=== PATIENT | male | born 1950 | race Caucasian/White ===

== ENCOUNTER → 2017-05-21 | Outpatient (CLI) | payer OTHER ==
[~2017-05-21] MED LIST: ALBU17IN2 INH; ALLO100T PO; CIAL5TAB PO; CIPR-249 PO; CYCL10TA PO; FLOM5CAP PO; LEVO25TA5 PO; MOBI4TAB PO; OXYC-517 PO; PROS5TAB PO; [UNRECOGNIZED DRUG - OTHER]
== END ==
LOC: M SMT 08:57
PROVIDERS: ATTEND Urology
DX: N40.1 Benign prostatic hyperplasia with lower urinary tract symptoms (principal)

== ENCOUNTER 2017-09-03 11:14 | Emergency (ER) | payer OTHER ==
[~2017-09-03] VITALS: Ht 157.5 cm; Wt 77.3 kg
[~2017-09-03 11:14] MED LIST changes: -ALBU17IN2 INH; -CYCL10TA PO; -MOBI4TAB PO
--- NOTE | 2017-09-03 12:18 | REP ---
Left shoulder series: Three views. History: Pain. Findings: The left glenohumeral and acromioclavicular joints are normally aligned. There is osteoarthritic hypertrophy at the AC joint along with some narrowing. There is a small dystrophic calcification in the periarticular soft tissues superolateral to the humeral head consistent with calcific tendonitis or bursitis. No bony erosive or destructive lesion is seen. 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 Periarticular calcification adjacent to the humeral head may reflect tendonitis or bursitis. No acute bony abnormality. Signed by Jaleel Leija MD 09/03/2017 01:26 P
[2017-09-03] MEDS ORDERED: MOBI4TAB PO (14:23)
[2017-09-03] MEDS ORDERED: CYCL10TA PO (14:23)
[2017-09-03 14:44] VITALS: BP 166/94
[2017-10-06] MEDS ORDERED: ALBU17IN2 INH (08:12)
== END 2017-09-03 14:45 | disposition home or self-care (01) ==
LOC: M ED 11:14
DX: M75.82 Other shoulder lesions, left shoulder (principal); W22.8XXA Striking against or struck by other objects, initial encounter; Y92.89 Other specified places as the place of occurrence of the external cause; Y93.89 Activity, other specified; Y99.8 Other external cause status; M10.9 Gout, unspecified; E03.9 Hypothyroidism, unspecified; Z90.79 Acquired absence of other genital organ(s); Z79.899 Other long term (current) drug therapy; Z88.8 Allergy status to other drugs, medicaments and biological substances

== ENCOUNTER 2017-10-15 06:04 | Day surgery (SDC) | payer OTHER ==
[~2017-10-15] VITALS: Ht 157.5 cm; Wt 74.8 kg
[~2017-10-15 06:04] MED LIST changes: +ALBU17IN2 INH; +CYCL10TA PO; +MOBI4TAB PO
[2017-10-15] MEDS ORDERED: ROPIvacaine 0.5% 30 ML INJECTION (J2795) ONE (06:05)
[2017-10-15] MEDS ORDERED: fentaNYL 100 MCG/2 ML INJECTION (J3010) As Ordered ONE ×2 (06:41→07:18)
[2017-10-15] MEDS ORDERED: MIDAZOLAM INJ 2 MG/2 ML VIAL (J2250) As Ordered ONE (06:41)
[2017-10-15] MEDS ORDERED: LR 1,000 ML IV ONE (07:00)
[2017-10-15] MEDS ORDERED: ROCURONIUM BROMIDE 50 MG/5 ML VIAL As Ordered ONE (07:17)
[2017-10-15] MEDS ORDERED: LIDOCAINE PRES-FREE 2% 10ML AMP As Ordered ONE (07:17)
[2017-10-15] MEDS ORDERED: PROPOFOL 200 MG/20 ML VIAL As Ordered ONE (07:17)
[2017-10-15] MEDS ORDERED: EPINEPHrine 1MG/ML INJ 30ML MD-VIAL As Ordered ONE (07:19)
[2017-10-15] MEDS: MIDAZOLAM INJ 2 MG/2 ML VIAL (J2250) IV PRN ×2 (07:21→07:22)
[2017-10-15] MEDS: fentaNYL 100 MCG/2 ML INJECTION (J3010) IV PRN ×2 (07:21→07:26)
[2017-10-15] MEDS ORDERED: dexameTHASONE 4 MG/ML 1ML VIAL (J1100) As Ordered ONE (07:54)
[2017-10-15] MEDS ORDERED: PHENYLEPHRINE INJ 10MG/ML VIAL (J2370) As Ordered ONE (07:59)
[2017-10-15] MEDS ORDERED: ceFAZolin 2 GM/D5W 50 ML IV BAG (J0690) As Ordered ONE (11:41)
[2017-10-15] MEDS ORDERED: ONDANSETRON 4MG/2ML VIAL (J2405) As Ordered ONE (11:46)
[2017-10-15] MEDS ORDERED: GLYCOPYRROLATE INJ 0.2 MG/ML 2 ML VIAL As Ordered ONE (11:47)
[2017-10-15] MEDS ORDERED: NEOSTIGMINE 10 MG/10 ML VIAL (J2710) As Ordered ONE (11:47)
[2017-10-15] MEDS ORDERED: MORPHINE 2 MG/ML 1ML SYRINGE IV PRN (13:00)
[2017-10-15] MEDS ORDERED: ONDANSETRON 4MG/2ML VIAL (J2405) IV PRN (13:00)
[2017-10-15] MEDS ORDERED: PERCOCET 5MG/325MG TAB PO PRN (13:00)
[2017-10-15] MEDS ORDERED: fentaNYL 100 MCG/2 ML INJECTION (J3010) IV PRN (13:00)
[2017-10-15] MEDS ORDERED: LR 1,000 ML IV SCH ×2 (13:00)
[2017-10-15 14:30] VITALS: BP 147/77
--- NOTE | 2017-10-16 12:55 | RO ---
DATE OF PROCEDURE: 10/15/2017 PREPROCEDURE DIAGNOSES: 1. Left shoulder massive rotator cuff tear. 2. Left shoulder impingement. POSTPROCEDURE DIAGNOSES: 1. Left shoulder massive rotator cuff tear. 2. Left shoulder impingement. 3. Left shoulder labral tear. 4. Left shoulder chondromalacia. PROCEDURE: 1. Left shoulder arthroscopy with arthroscopic rotator cuff repair. 2. Left shoulder arthroscopic subacromial decompression. 3. Left shoulder arthroscopic labral debridement and chondroplasty. SURGEON: Dr. Gamaliel Gao. LOG CLERK: ARMANI Woodard ANESTHESIA: General with preoperative nerve block. ESTIMATED BLOOD LOSS: IMPLANTS: Arthrex 4.75 mm SwiveLock anchors times five, Arthrex 5.5 mm Corkscrew anchor times two. CLOSURE: Nylon. INDICATION: Jey is a 66-year-old gentleman that suffered a traumatic injury to his left shoulder. He had severely diminished active forward flexion and severe weakness on exam concerning for a massive rotator cuff tear. Preoperative MRI confirmed tear of the supraspinatus, infraspinatus and upper subscapularis. Given his poor function yet good passive range of motion, I did recommend surgical management. We discussed the increased risk of retear for massive tears which includes tearing of three of three of the four rotator cuff tendons as well as muscle atrophy which he has mild atrophy. He also had some mild arthritic changes on x-ray. After a full discussion of the risks and benefits, written and informed consent was obtained. PROCEDURE: The patient was identified in the preoperative holding area and the left arm signed by myself. He had a preoperative nerve block performed by anesthesia. He was brought to the operating room and placed supine on a well padded OR table with a beanbag. Venodyne boots bilateral lower extremities for deep venous thrombosis (DVT) prophylaxis. General anesthesia then induced without complication. Preliminary time out performed. Examination under anesthesia revealed 150 degrees of passive forward flexion, 70 degrees of external rotation with his arm at his side and 90 degrees of external rotation with his arm at 90. No increased anterior or posterior translation. The patient was then placed into the right side down lateral decubitus position with an axillary roll. The beanbag was deflated and he was secured with multiple straps to the operating room (OR) table. The down leg and all bony prominences well padded. The right arm was then prepped and draped in the normal sterile fashion with ChloraPrep. He received appropriate IV antibiotics within one hour of incision. A time out performed which myself and all OR staff confirmed the patient's name, medical record number, date of and the correct side, site and procedure. The right shoulder was insufflated with 30 mL of lactated ringers with a spinal needle. Standard posterior viewing portal made with an 11 blade. 30 degree arthroscope introduced into the joint atraumatically. Patient had formed quite a bit of scar tissue. It was difficult to visualize the anterior aspect of the joint. There was extensive synovitis. There was diffuse tearing of the anterior and superior labrum more degenerative in nature. There was a massive full thickness rotator cuff tear involving the entire infraspinatus, supraspinatus and I was unable to visualize the subscapularis. The only remaining rotator cuff tissue was the teres minor. There was grade 2 chondromalacia of both the humeral head and glenoid with small osteophyte formation on the humeral head. I then established a working portal through the rotator interval and brought in a purple Arthrex cannula. The shaver was used to perform a debridement of the labrum and chondroplasty of both the humeral head and glenoid. I also used the shaver to clear off some scar tissue on the greater tuberosity and used the shaver on ariana setting to remove a small osteophyte. The cautery device was then used to clear out some of the synovitis and scar tissue in the rotator interval. Still had difficulty visualizing the subscapularis. The scope was then placed into the subacromial space to come up with a plan for rotator cuff repair. A lateral working portal was localized with a spinal needle and then I used the radiofrequency cautery to perform a bursectomy and remove scar tissue off the undersurface of the acromion. The rotator cuff had retracted to the level of the glenoid. A traction stitch was placed into the tendon using a Scorpion FastPass and I then used the cautery to carefully remove bursa and scar tissue from both the superior and inferior aspects of the rotator cuff. The tissue grasper was used to manipulate the tendon to determine the appropriate position for rotator cuff repair. Basically this was a massive crescent tear which had retracted posteriorly with a delaminated component far posterior. Plan was to repair the far posterior rotator cuff then repair the subscapularis and the perform a SpeedBridge. I percutaneously placed a 5.5 mm Corkscrew anchor into the posterior greater tuberosity to repair the infraspinatus. The Scorpion was used to pass two limbs of the FiberWire in a horizontal mattress fashion through the far posterior and deep infraspinatus tissue. Arthroscopic knots were then tied by hand and cut. The remaining suture was unloaded from the anchor. This help set the posterior aspect of the tear. The scope was placed into the lateral portal to again have a full understanding of the shape of this tear. Additional releases were performed with cautery and bluntly with a switching stick to increase mobilization of the rotator cuff. The scope was placed back into the joint and with the posterior Lever maneuver, I was able to visualize the subscapularis which appeared torn and retracted inferiorly. The cautery was used to clear out more soft tissue and then to place traction on the comma tissue. I would estimate that the entire upper half of the subscapularis had torn and had more retracted inferiorly than medially. With the grasper I was able to reduce the tendon to the lesser tuberosity with only mild tension. I then used the shaver on the ariana setting to remove a small area of articular cartilage on the lesser tuberosity and basically medialize the subscapularis insertion by 5 mm. The Scorpion was used to pass a FiberTape through the upper third of the subscapularis through healthier tissue. Sutures were loaded through a SwiveLock anchor. The appropriate punch was used to create a socket in the lesser tuberosity at that slightly medialized position and then the punch used to create that socket. The anchor was then docked and sutures tensioned which nicely reduced the subscapularis tendon to the bone but not under excessive tension. The anchor was advanced by hand with excellent fixation. The sutures were trimmed and discarded. Subscapularis was now nicely repaired. The scope was placed back in the subacromial space and I placed percutaneously a 5.5 mm Corkscrew anchor in the far anterior greater tuberosity to help set the leading edge of the supraspinatus to avoid now reducing the tendon. All four limbs of suture were passed in a horizontal mattress fashion using the FastPass. The most anterior sutures were tied by hand and then trimmed and discarded. The more posterior sutures yet still in the anterior supraspinatus were tied by hand but not cut. I then opened the Arthrex SpeedBridge kit which were 4.75 PEEK anchors. I percutaneously placed two of the preloaded anchors close to the articular surface in the greater tuberosity. The sutures were cut to that I could pass the Fiber and [place] tapes individually so there were four individual passes. This was done in an anterior to posterior fashion. One limb of Fiber and [place] tape posteriorly were withdrawn from the posterior lateral cannula which was used to reduce the tendon to the greater tuberosity to determine the appropriate position for lateral anchor. Those sutures were loaded through a SwiveLock anchor and the appropriate punch used to create a socket and then the anchor seated, sutures tension and the screw advanced by hand with excellent fixation. There was now though a dog ear at the junction of the supra- and infraspinatus. I passed a FiberLink suture through that bunched up tissue to remove the dog ear. I then retrieved that FiberLink and the more anterior sutures out in the anterior lateral cannula and then used the cannula to reduce those sutures to determine the most appropriate position for lateral row. The dog ear was now completely eliminated by that FiberLink suture. Again lateral anchor placed by hand per SpeedBridge routine and that anchor had good but not great fixation. I did tug on the eyelet sutures and there was no motion of the anchor. Sutures were then trimmed and discarded. The arm was gently rotated and the rotator cuff moved nicely as a unit with no lift off. The shoulder was irrigated and drained. Portals closed with #3-0 Nylon suture. Bulky sterile bandage applied. Patient was very carefully positioned into an ARC 2 shoulder brace. He was awoken from general anesthesia, carefully transferred to his stretcher and back to the postanesthesia care unit. All counts correct times two. COMPLICATIONS: None. DISPOSITION: Patient is strictly non-weight bearing and no use of the left arm. This was relayed to his significant other. We will not start physical therapy for 6 weeks. I should mention that his antibiotics were redosed at the 4 hour tomeka.
== END 2017-10-15 15:00 | disposition home or self-care (01) ==
LOC: M SDC 06:04
PROVIDERS: ATTEND Orthopaedic Surgery
DX: S46.012A Strain of muscle(s) and tendon(s) of the rotator cuff of left shoulder, initial encounter (principal); S43.492A Other sprain of left shoulder joint, initial encounter; M94.212 Chondromalacia, left shoulder; M75.42 Impingement syndrome of left shoulder; E03.9 Hypothyroidism, unspecified; M54.9 Dorsalgia, unspecified; M10.9 Gout, unspecified; K21.9 Gastro-esophageal reflux disease without esophagitis; J44.9 Chronic obstructive pulmonary disease, unspecified; N40.0 Benign prostatic hyperplasia without lower urinary tract symptoms; W20.8XXA Other cause of strike by thrown, projected or falling object, initial encounter; Y92.89 Other specified places as the place of occurrence of the external cause; Y93.89 Activity, other specified; Y99.0 Civilian activity done for income or pay; Z79.899 Other long term (current) drug therapy; Z87.891 Personal history of nicotine dependence
CPT/HCPCS: 29822; 29826; 29827; C1713; J0690; J1100; J2250; J2370; J2405; J2710; J2795; J3010

== ENCOUNTER → 2018-01-20 | Outpatient (REF) | payer MEDICARE ==
[2018-01-20 12:11] LABS: HEMATOCRIT 44.5 % (42.0-52.0); HEMOGLOBIN 14.8 g/dl (14.0-18.0); MEAN CORPUSCULAR HGB CONC 33.3 g/dl (32.0-36.5); MEAN CORPUSCULAR VOLUME 90.3 fl (80.0-96.0); PLATELET COUNT, AUTOMATED 267 10^3/uL (150-450); RED BLOOD COUNT 4.93 10^6/uL (4.30-6.10); RED CELL DISTRIBUTION WIDTH 13.5 % (11.5-14.5); WHITE BLOOD COUNT 6.4 10^3/uL (4.0-10.0)
[2018-01-20 12:12] LABS: PTH INTACT 87.3 PG/ML (18.5-88.0); TOTAL 25(OH) VITAMIN D 21.7 NG/ML (30.0-100.0)
[2018-01-20 12:20] LABS: ANION GAP 9 MEQ/L (8-16); BLOOD UREA NITROGEN 28 MG/DL (7-18); CALCIUM LEVEL 8.8 MG/DL (8.8-10.2); CARBON DIOXIDE LEVEL 27 MEQ/L (21-32); CHLORIDE LEVEL 105 MEQ/L (98-107); CREATININE FOR GFR 1.63 MG/DL (0.70-1.30); FREE T4 0.79 NG/DL (0.76-1.46); GLOMERULAR FILTRATION RATE 45.4 (>49); GLUCOSE, FASTING 108 MG/DL (70-100); POTASSIUM SERUM 4.7 MEQ/L (3.5-5.1); SODIUM LEVEL 141 MEQ/L (136-145)
[2018-01-20 12:39] LABS: CREATININE, URINE 35.7 MG/DL; MALB URINE SIEMENS 68.2 MG/L
== END ==
LOC: M SFHCLERA 08:46
DX: N18.3 Chronic kidney disease, stage 3 (moderate) (principal); E03.9 Hypothyroidism, unspecified
CPT/HCPCS: 84443

== ENCOUNTER → 2018-03-31 | Outpatient (REF) | payer MEDICARE ==
[2018-03-31 18:17] LABS: ESTIMATED AVERAGE GLUCOSE 126 MG/DL (60-110)
[2018-03-31 18:28] LABS: CHOLESTEROL LEVEL 331 MG/DL (<200); CHOLESTEROL RISK RATIO 7.355 (<5); FREE T4 0.85 NG/DL (0.76-1.46); HDL CHOLESTEROL 45 MG/DL (>40); NON-HDL-C 286 MG/DL; TRIGLYCERIDES LEVEL 444 MG/DL (<150)
== END ==
LOC: M SFHCLERA 13:50
DX: E03.9 Hypothyroidism, unspecified (principal)
CPT/HCPCS: 84443

== ENCOUNTER → 2018-11-12 | Outpatient (REF) | payer MEDICARE ==
[2018-11-12 20:43] LABS: BASO % 0.2 % (0.0-1.0); EOS # 0.4 10^3/uL (0.0-0.50); EOS % 4.5 % (0.0-3.0); HEMATOCRIT 42.8 % (42.0-52.0); HEMOGLOBIN 13.9 g/dl (13.5-17.5); IMMATURE GRANULOCYTE % 0.7 % (0-3.0); LYMPH # 2.1 10^3/uL (1.5-4.5); LYMPH % 25.8 % (24.0-44.0); MEAN CORPUSCULAR HEMOGLOBIN 29.6 pg (27.0-33.0); MEAN CORPUSCULAR HGB CONC 32.5 g/dl (32.0-36.5); MEAN CORPUSCULAR VOLUME 91.3 fl (80.0-96.0); MONO % 11.7 % (0.0-5.0); NEUTROPHILS # 4.7 10^3/uL (1.8-7.7); NEUTROPHILS % 57.1 % (36.0-66.0); PLATELET COUNT, AUTOMATED 339 10^3/uL (150-450); RED BLOOD COUNT 4.69 10^6/uL (4.30-6.10); RED CELL DISTRIBUTION WIDTH 13.3 % (11.5-14.5); WHITE BLOOD COUNT 8.2 10^3/uL (4.0-10.0)
[2018-11-12 20:44] LABS: URIC ACID 7.8 MG/DL (3.5-7.2)
[2018-11-12 20:44] LABS: C REACTIVE PROTEIN QUANTITATIV 5.32 MG/DL (0.00-0.30)
[2018-11-12 20:46] LABS: ALBUMIN 3.9 GM/DL (3.2-5.2); ALBUMIN/GLOBULIN RATIO 1.15 (1.00-1.93); ALKALINE PHOSPHATASE 73 U/L (45-117); ALT/SGPT 31 U/L (12-78); ANION GAP 7 MEQ/L (8-16); AST/SGOT 20 U/L (7-37); BILIRUBIN,TOTAL 0.5 MG/DL (0.2-1.0); BLOOD UREA NITROGEN 24 MG/DL (7-18); CALCIUM LEVEL 8.6 MG/DL (8.8-10.2); CARBON DIOXIDE LEVEL 24 MEQ/L (21-32); CHLORIDE LEVEL 108 MEQ/L (98-107); CREATININE FOR GFR 1.53 MG/DL (0.70-1.30); GLOMERULAR FILTRATION RATE 48.9 (>49); GLUCOSE, FASTING 80 MG/DL (70-100); POTASSIUM SERUM 4.6 MEQ/L (3.5-5.1); SODIUM LEVEL 139 MEQ/L (136-145); TOTAL PROTEIN 7.3 GM/DL (6.4-8.2)
[2018-11-12 20:58] LABS: ESTIMATED AVERAGE GLUCOSE 140 MG/DL (60-110); HEMOGLOBIN A1c 6.5 %
[2018-11-12 21:04] LABS: ERYTHROCYTE SEDIMENTATION RATE 24 mm/hr (0-20)
== END ==
LOC: M SFHCLERA 15:46
DX: M25.461 Effusion, right knee (principal); N18.3 Chronic kidney disease, stage 3 (moderate); R73.02 Impaired glucose tolerance (oral)
CPT/HCPCS: 84550

== ENCOUNTER → 2018-11-12 | Outpatient (CLI) | payer MEDICARE | LOC: M LRY 15:59 | DX: M17.11 Unilateral primary osteoarthritis, right knee (principal); M25.761 Osteophyte, right knee; M25.461 Effusion, right knee | CPT/HCPCS: 73564 ==

== ENCOUNTER → 2018-11-18 | Outpatient (REF) | payer MEDICARE ==
[2018-11-18 11:39] LABS: BASO % 0.4 % (0.0-1.0); EOS # 0.4 10^3/uL (0.0-0.50); EOS % 4.3 % (0.0-3.0); HEMATOCRIT 45.2 % (42.0-52.0); HEMOGLOBIN 14.5 g/dl (13.5-17.5); IMMATURE GRANULOCYTE % 1.1 % (0-3.0); LYMPH # 1.8 10^3/uL (1.5-4.5); LYMPH % 17.6 % (24.0-44.0); MEAN CORPUSCULAR HGB CONC 32.1 g/dl (32.0-36.5); MEAN CORPUSCULAR VOLUME 93.4 fl (80.0-96.0); MONO # 1.2 10^3/uL (0.0-0.8); MONO % 11.9 % (0.0-5.0); NEUTROPHILS # 6.5 10^3/uL (1.8-7.7); NEUTROPHILS % 64.7 % (36.0-66.0); PLATELET COUNT, AUTOMATED 351 10^3/uL (150-450); RED BLOOD COUNT 4.84 10^6/uL (4.30-6.10); RED CELL DISTRIBUTION WIDTH 13.2 % (11.5-14.5); WHITE BLOOD COUNT 10.1 10^3/uL (4.0-10.0)
[2018-11-18 11:43] LABS: C REACTIVE PROTEIN QUANTITATIV 4.17 MG/DL (0.00-0.30)
== END ==
LOC: M SFHCLERA 07:54
DX: M25.461 Effusion, right knee (principal)
CPT/HCPCS: 86140

== ENCOUNTER 2019-08-23 09:49 | Day surgery (SDC) | payer MEDICARE ==
[~2019-08-23] VITALS: Ht 157.5 cm; Wt 76.2 kg
[~2019-08-23 09:49] MED LIST changes: -ALBU17IN2 INH; +AMLO5TAB6 PO; +ATOR1TAB19 PO; +FLOM0.4C39 PO; -FLOM5CAP PO; +LIDOCAINE 1% MDV 20ML VIAL SQ PRN; +LR 1,000 ML IV ONE; +PROV108A INH; +b/p med; +ceFAZolin SOD 2 GM in IV 1 EA IV ONE
[2019-08-23] MEDS ORDERED: ROPIvacaine 0.5% 30 ML INJECTION (J2795 PER 1MG) ONE (09:50)
[2019-08-23] MEDS ORDERED: dexameTHASONE 10 MG/1 ML VIAL PRES.FREE (J1100) ONE (09:50)
[2019-08-23] MEDS ORDERED: ALEV220T22 PO (10:36)
[2019-08-23] MEDS ORDERED: SCOPOLAMINE 1MG TRANSDERMAL PATCH TOP ONE (10:45)
[2019-08-23] MEDS ORDERED: LIDOCAINE 1% SDV INJ 30 ML VIAL As Ordered ONE (11:12)
[2019-08-23] MEDS ORDERED: EPINEPHrine 1MG/ML INJ 30ML MD-VIAL As Ordered ONE (11:13)
[2019-08-23] MEDS ORDERED: MIDAZOLAM INJ 2 MG/2 ML VIAL (J2250) As Ordered ONE ×2 (11:44→12:40)
[2019-08-23] MEDS ORDERED: fentaNYL 100 MCG/2 ML INJECTION (J3010) As Ordered ONE ×2 (11:44→12:40)
[2019-08-23] MEDS ORDERED: MIDAZOLAM INJ 2 MG/2 ML VIAL (J2250) IV ONE (12:30)
[2019-08-23] MEDS ORDERED: fentaNYL 100 MCG/2 ML INJECTION (J3010) IV ONE (12:30)
[2019-08-23] MEDS ORDERED: LIDOCAINE 2% INJ 100 MG/5 ML SDV (FOR ANES.) As Ordered ONE (12:40)
[2019-08-23] MEDS ORDERED: dexameTHASONE 4 MG/ML 1ML VIAL (J1100) As Ordered ONE (12:40)
[2019-08-23] MEDS ORDERED: ROCURONIUM BROMIDE 50 MG/5 ML VIAL As Ordered ONE (12:40)
[2019-08-23] MEDS ORDERED: PROPOFOL 200 MG/20 ML VIAL As Ordered ONE (12:40)
[2019-08-23] MEDS ORDERED: ePHEDrine SULFATE 25 MG/5 ML(5MG/ML) SYRINGE As Ordered ONE (13:04)
[2019-08-23] MEDS ORDERED: ONDANSETRON 4MG/2ML VIAL (J2405) As Ordered ONE (13:36)
[2019-08-23] MEDS ORDERED: SUGAMMADEX SODIUM 500 MG/5 ML VIAL (BRIDION) As Ordered ONE (14:00)
[2019-08-23] MEDS ORDERED: LR 1,000 ML IV SCH ×3 (16:45→17:30)
[2019-08-23] MEDS ORDERED: fentaNYL 100 MCG/2 ML INJECTION (J3010) IV PRN (16:45)
[2019-08-23] MEDS ORDERED: ONDANSETRON 4MG/2ML VIAL (J2405) IV PRN (16:45)
[2019-08-23] MEDS ORDERED: oxyCODONE 5MG TAB As Ordered ONE (16:57)
[2019-08-23] MEDS ORDERED: oxyCODONE 5MG TAB PO PRN ×2 (17:15→17:30)
[2019-08-23 18:30] VITALS: BP 125/83
--- NOTE | 2019-09-06 10:35 | RO ---
DATE OF PROCEDURE: 08/23/2019 PREOPERATIVE DIAGNOSIS: 1. Right shoulder massive rotator cuff tear. 2. Right shoulder long head biceps subluxation with tearing. 3. Left shoulder impingement. 4. Left shoulder AC joint arthritis. POSTOPERATIVE DIAGNOSIS: 1. Right shoulder massive rotator cuff tear. 2. Right shoulder long head biceps subluxation with tearing. 3. Left shoulder impingement. 4. Left shoulder AC joint arthritis. PROCEDURE: 1. Right shoulder arthroscopic rotator cuff repair. 2. Right shoulder arthroscopic subacromial decompression with acromioplasty. 3. Right shoulder arthroscopic distal clavicle excision. 4. Right shoulder extensive debridement including a tenotomy of the long head of biceps, labral debridement chondroplasty. SURGEON: Dr. Gamaliel Gao. BUS ANALYST: ARMANI Hensley ANESTHESIA:General plus preoperative nerve block. IV FLUIDS: Lactated Ringer's. IMPLANTS: Arthrex Peak SwiveLock anchors. CLOSURE: Nylon. PROCEDURE: The patient was identified in preoperative holding area. The right shoulder marked by myself. Interscalene nerve block performed. Brought the operating room, placed supine on a well-padded OR table on the beanbag. General anesthesia induced. Exam under anesthesia revealed 170 degrees forward flexion 80 of external rotation with arm at his side. No increased anterior-posterior translation. He was placed to the left side down lateral decubitus position with an axillary roll and all bony prominences well padded. He had bilateral Venodyne boots for DVT prophylaxis. The right arm was placed into the Arthrex star sleeve lateral decubitus traction davis with 10 pounds of traction. He received appropriate IV antibiotics within 1 hour of incision. The right shoulder was then prepped and draped in normal sterile fashion with Chloraprep. Prior to incision time-out performed per hospital protocol. Anastacio Serrano was present the entire procedure and participated all essential portions procedure. This included patient positioning, draping, holding arthroscope, using the mallet and awl to help place anchors, retrieving sutures, a cutting sutures arthroscopically, wound closure applying the sling. The right shoulder was insufflated lactated Ringer's. A standard posterior viewing portal made 11-blade. 30 degree arthroscope introduced into the joint and diagnostic arthroscopy was carried out. This revealed grade 1 to 2 chondromalacia of the glenoid. Grade 1 in the humeral head. There was a degenerative tearing of the anterior superior labrum. There was a massive tear of the entire supraspinatus which was significantly retracted and the infraspinatus was also torn. The upper subscapularis was torn as well. The long head of the biceps was still attached to the long head biceps was still attached but was subluxated. This was released with a up biter. I did establish an anterior working portal through the rotator interval. I then released the long head of biceps which was subluxated with the meniscal punch. Next the cautery shaver used to clear out the rotator interval. An accessory superolateral portal was used to place a fiber tape suture through the upper one third of the subscapularis. There was split tearing of retraction of the subscapularis a suture lasso was used to shuttle fiber tape through the lower subscapularis. That was loaded through 4.75 mm Peak SwiveLock anchor. Shaver cautery used to clear soft tissue off the lesser tuberosity. The appropriate awl was used to create a socket lesser tuberosity. The anchor was docked, sutures tensioned anchor inserted with excellent fixation. Excess suture cut the eyelet cutter. The subscapularis was now under much better tension. Scorpion used to pass a separate fiber tape through the upper one third of healthy tendon and that was also loaded through 4.75 mm Peak SwiveLock anchor same steps repeated with the awl and mallet. The anchor was docked higher up on the lesser tuberosity and that had excellent fixation. This was a two anchor subscapularis repair and this was nicely secured to the lesser tuberosity without any significant tension. I performed a chondroplasty and labral debridement with the shaver. Next the arthroscope was placed in the subacromial space and I proceeded with a distal clavicle excision using a bur. I removed approximately 6 mm of the distal clavicle. The scope was placed through the anterior portal to ensure no posterior-superior bone was remaining. Arthroscope placed back through the posterior portal and through a lateral portal I performed a bursectomy and acromioplasty. The bur was used to remove a moderate size subacromial spur. Shaver and cautery used to clear out bursal tissue. A traction stitch was placed in the supraspinatus which was massively retracted. I should mention almost entire infraspinatus had torn and retracted as well. Once additional releases were performed the cuff grasper was used to reduce the tendon to the greater tuberosity and this was deemed repairable. I percutaneously placed a 4.75 mm Peak SwiveLock anchor through the far posterior portion of greater tuberosity just off the articular surface. Eyelet sutures were passed and as were the tape sutures. Eyelet sutures were then tied down using arthroscopic knot tying techniques which brought the tendon further anterior and lateral. I then placed two additional medial row anchors and passed the tapes to the supraspinatus. The medial sutures then brought out to lateral row were cannula where a separate portal was made to give a better angle. I used the ring curette to clear soft tissue off the greater tuberosity. Two anchors were used laterally three medial. When the lateral rows were seated there was excellent compression of the infra and supraspinatus to the greater tuberosity. The entire humeral head was covered with tendon so was able to get a complete repair. The shoulder was then gently internally and externally rotated and there is no lift off or buckling. Shoulder was irrigated and drained. Portals closed with nylon suture. Bulky sterile dressing applied. He was carefully placed into a sling, extubated, transferred to PACU in stable condition. All counts correct times. DISPOSITION: The patient's family was warned out postoperatively that this was a massive tear. He has to be very diligent following postop restrictions avoid re-tear.
== END 2019-08-23 18:35 | disposition home or self-care (01) ==
LOC: M SDC 09:49 → EDSTATUS 11:45 → M SDC 18:35
PROVIDERS: ATTEND Orthopaedic Surgery
DX: M75.121 Complete rotator cuff tear or rupture of right shoulder, not specified as traumatic (principal); M94.211 Chondromalacia, right shoulder; M19.011 Primary osteoarthritis, right shoulder; M75.41 Impingement syndrome of right shoulder; S46.111A Strain of muscle, fascia and tendon of long head of biceps, right arm, initial encounter; I10 Essential (primary) hypertension; E78.00 Pure hypercholesterolemia, unspecified; N40.0 Benign prostatic hyperplasia without lower urinary tract symptoms; Z79.899 Other long term (current) drug therapy
CPT/HCPCS: 29824; 29826; 29827; 29828; C1713; J0690; J1100; J2250; J2405; J2795; J3010

== ENCOUNTER → 2020-07-25 | Outpatient (REF) | payer MEDICARE ==
[~2020-07-25] MED LIST changes: +ALEV220T22 PO; +AMLO1TAB24 PO; -AMLO5TAB6 PO; +CYCL-707 PO; -CYCL10TA PO; -LIDOCAINE 1% MDV 20ML VIAL SQ PRN; -LR 1,000 ML IV ONE; -ceFAZolin SOD 2 GM in IV 1 EA IV ONE
[2020-07-25 15:38] LABS: BASO % 0.6 % (0.0-1.0); EOS # 0.4 10^3/uL (0.0-0.5); EOS % 6.3 % (0.0-3.0); HEMATOCRIT 45.6 % (42.0-52.0); HEMOGLOBIN 15.1 g/dl (13.5-17.5); LYMPH # 2.1 10^3/uL (1.5-5.0); LYMPH % 30.7 % (24.0-44.0); MEAN CORPUSCULAR HEMOGLOBIN 30.8 pg (27.0-33.0); MEAN CORPUSCULAR HGB CONC 33.1 g/dl (32.0-36.5); MEAN CORPUSCULAR VOLUME 92.9 fl (80.0-96.0); MONO # 0.8 10^3/uL (0.0-0.8); MONO % 11.4 % (0.0-5.0); NEUTROPHILS # 3.5 10^3/uL (1.5-8.5); NEUTROPHILS % 50.6 % (36.0-66.0); PLATELET COUNT, AUTOMATED 262 10^3/uL (150-450); RED BLOOD COUNT 4.91 10^6/uL (4.30-6.10); WHITE BLOOD COUNT 6.9 10^3/uL (4.0-10.0)
[2020-07-25 16:27] LABS: ALT/SGPT 38 U/L (12-78); BILIRUBIN,TOTAL 0.6 MG/DL (0.2-1.0); BLOOD UREA NITROGEN 23 MG/DL (7-18); CALCIUM LEVEL 8.9 MG/DL (8.8-10.2); CARBON DIOXIDE LEVEL 28 MEQ/L (21-32); CHLORIDE LEVEL 104 MEQ/L (98-107); CHOLESTEROL LEVEL 238 MG/DL (<200); CHOLESTEROL RISK RATIO 5.288 (<5); GLOMERULAR FILTRATION RATE 40.3 (>49); GLUCOSE, FASTING 112 MG/DL (70-100); HDL CHOLESTEROL 45 MG/DL (>40); NON-HDL-C 193 MG/DL; POTASSIUM SERUM 5.4 MEQ/L (3.5-5.1); SODIUM LEVEL 138 MEQ/L (136-145); TESTOSTERONE 264 NG/DL (241-827); TRIGLYCERIDES LEVEL 576 MG/DL (<150)
== END ==
LOC: M SFHCLERA 09:50
PROVIDERS: ATTEND Family Medicine
DX: N52.9 Male erectile dysfunction, unspecified (principal); E78.5 Hyperlipidemia, unspecified; R94.4 Abnormal results of kidney function studies; Z13.1 Encounter for screening for diabetes mellitus; Z79.899 Other long term (current) drug therapy

== ENCOUNTER → 2021-03-09 | Outpatient (CLI) | payer MEDICARE ==
[~2021-03-09] MED LIST changes: +ALBU8.5H INH; +LEVO50TA5 PO
== END ==
LOC: M LABSMTC 11:57
PROVIDERS: ATTEND Anesthesiology
DX: Z01.812 Encounter for preprocedural laboratory examination (principal); Z20.822 Contact with and (suspected) exposure to COVID-19

== ENCOUNTER 2021-03-14 10:13 | Day surgery (SDC) | payer MEDICARE ==
[~2021-03-14] VITALS: Ht 157.5 cm; Wt 73.4 kg
[~2021-03-14 10:13] MED LIST changes: +NS 1,000 ML IV ONE
[2021-03-14] MEDS ORDERED: propofoL 200 MG/20 ML VIAL As Ordered ONE (11:21)
--- NOTE | 2021-03-14 11:42 | ROOR ---
Patient Name: Nick Jiang Procedure Date: 03/14/2021 11:27 AM Date of : 1950 Age: 70 Room: [facility] Gender: Male Note Status: Finalized Procedure: Colonoscopy Indications: Screening for colorectal malignant neoplasm Providers: DO Mayra Tam MD: Shelton Barr Requesting Provider: Medicines: Propofol per Anesthesia Complications: No immediate complications. Procedure: Pre-Anesthesia Assessment: - Prior to the procedure, a History and Physical was performed, and patient medications and allergies were reviewed. The patient is competent. The risks and benefits of the procedure and the sedation options and risks were discussed with the patient. All questions were answered and informed consent was obtained. Patient identification and proposed procedure were verified by the physician, the nurse, the film developer and the biotechnician in the endoscopy suite. Mental Status Examination: alert and oriented. Airway Examination: normal oropharyngeal airway and neck mobility. Respiratory Examination: clear to auscultation. CV Examination: normal. Prophylactic Antibiotics: The patient does not require prophylactic antibiotics. Prior Anticoagulants: The patient has taken no previous anticoagulant or antiplatelet agents. ASA Grade Assessment: II - A patient with mild systemic disease. After reviewing the risks and benefits, the patient was deemed in satisfactory condition to undergo the procedure. The anesthesia plan was to use monitored anesthesia care (MAC). Immediately prior to administration of medications, the patient was re-assessed for adequacy to receive sedatives. The heart rate, respiratory rate, oxygen saturations, blood pressure, adequacy of pulmonary ventilation, and response to care were monitored throughout the procedure. The physical status of the patient was re-assessed after the procedure. The Colonoscope was introduced through the anus and advanced to the cecum, identified by appendiceal orifice and ileocecal valve. The colonoscopy was performed without difficulty. The patient tolerated the procedure well. Findings: Scattered small-mouthed diverticula were found in the entire colon. Internal hemorrhoids were found during retroflexion. The hemorrhoids were Grade I (internal hemorrhoids that do not prolapse). Impression: - Diverticulosis in the entire examined colon. - Internal hemorrhoids. - No specimens collected. Recommendation: - Repeat colonoscopy in 5-10 years for screening purposes. - Return to my office PRN. Procedure Code(s): --- Professional --- G0121, Colorectal cancer screening; colonoscopy on individual not meeting criteria for high risk Diagnosis Code(s): --- Professional --- Z12.11, Encounter for screening for malignant neoplasm of colon K64.0, First degree hemorrhoids K57.30, Diverticulosis of large intestine without perforation or abscess without bleeding CPT copyright 2019 [employer]. All rights reserved. The codes documented in this report are preliminary and upon inside sales agent review may be revised to meet current compliance requirements. Guzman Castillo DO 03/14/2021 11:41:47 AM Electronically signed by Guzman Castillo DO Number of Addenda: 0 Note Initiated On: 03/14/2021 11:27 AM Estimated Blood Loss: Estimated blood loss was minimal.
[2021-03-14 11:59] VITALS: BP 116/64
== END 2021-03-14 12:01 | disposition home or self-care (01) ==
LOC: M OPP 10:13
PROVIDERS: ATTEND Surgery
DX: Z12.11 Encounter for screening for malignant neoplasm of colon (principal); K57.30 Diverticulosis of large intestine without perforation or abscess without bleeding; K64.0 First degree hemorrhoids; I10 Essential (primary) hypertension; Z79.899 Other long term (current) drug therapy

== ENCOUNTER → 2021-03-21 | Outpatient (CLI) | payer MEDICARE ==
[~2021-03-21] MED LIST changes: -NS 1,000 ML IV ONE
--- NOTE | 2021-03-21 12:23 | REP ---
INDICATION: PAIN AFTER STEPPING IN A HOLE COMPARISON: None. TECHNIQUE: AP, lateral, bilateral oblique views. FINDINGS: Mild/moderate swelling. Age-related changes. No acute fracture or dislocation. Ankle mortise intact. Calcaneal heel spur noted. IMPRESSION: Swelling. No acute fracture or dislocation. <Electronically signed by Luc Julien > 03/21/21 [id number]
--- NOTE | 2021-03-21 12:42 | REP ---
INDICATION: PAIN AFTER STEPPING IN A HOLE COMPARISON: None. TECHNIQUE: AP, lateral, bilateral oblique views . FINDINGS: Degenerative changes primarily involving the 1st metatarsophalangeal joint along with moderate calcaneal heel spur. No obvious acute fracture or dislocation. IMPRESSION: Degenerative changes. No acute fracture or dislocation. <Electronically signed by Luc Julien > 03/21/21 [id number]
== END ==
LOC: M WUC 11:58
PROVIDERS: ATTEND Nurse Practitioner Family
DX: M25.571 Pain in right ankle and joints of right foot (principal)

== ENCOUNTER → 2021-04-27 | Outpatient (CLI) | payer MEDICARE ==
--- NOTE | 2021-04-27 15:20 | REPVR ---
PROCEDURE INFORMATION: Exam: MR Lumbar Spine Without Contrast Exam date and time: 04/27/2021 12:57 PM Age: 70 years old Clinical indication: Low back pain; Additional info: Intervertebral disc degeneration TECHNIQUE: Imaging protocol: Multiplanar magnetic resonance images of the lumbar spine without intravenous contrast. COMPARISON: No relevant prior studies available. FINDINGS: Vertebrae: No acute compression fracture is seen. There is 4 mm of retrolisthesis of L1 on L2 and L3 on L4. Spinal cord: The conus medullaris terminates at the L1 level. There is no evidence of arachnoiditis or cauda equina compression. L1-L2: There is disc dehydration, moderate disc space narrowing, moderate diffuse circumferential disc bulging, and a superimposed right subarticular and foraminal disc protrusion. Mild facet arthropathy is also noted. This is causing minimal spinal canal stenosis, mild narrowing of the right subarticular recess, and mild right neural foraminal narrowing. L2-L3: There is moderate diffuse circumferential disc bulging, mild facet arthropathy, and thickening of the ligamentum flavum. This is causing mild spinal canal stenosis and mild bilateral neural foraminal narrowing. L3-L4: There is moderate diffuse circumferential disc bulging with a superimposed left extraforaminal and far left lateral disc protrusion. Moderate facet arthropathy and thickening of the ligamentum flavum is also present. This is causing mild spinal canal stenosis, moderate narrowing of the subarticular recesses, and moderate bilateral neural foraminal narrowing. The left extraforaminal L3 nerve likely abuts the extraforaminal disc protrusion. L4-L5: There is moderate diffuse circumferential disc bulging, facet arthropathy, and thickening of the ligamentum flavum. This is causing moderate spinal canal stenosis, moderate narrowing of the subarticular recesses, and moderate bilateral neural foraminal narrowing. L5-S1: There is moderate diffuse circumferential disc bulging and facet arthropathy. There is no significant spinal canal stenosis. Mild bilateral neural foraminal narrowing is present. Soft tissues: Subcutaneous edema is present in the lower back. Urinary bladder: Trabeculation of the bladder wall is noted, possibly due to chronic outlet obstruction. Clinical correlation is recommended. IMPRESSION: Degenerative changes of the lumbar spine as discussed above Electronically signed by: Jai Perez On 04/27/2021 15:19:48 PM
== END ==
LOC: M PLARAD 12:55
PROVIDERS: ATTEND Physician Assistant
DX: M51.36 Other intervertebral disc degeneration, lumbar region (principal)

== ENCOUNTER → 2021-06-27 | Outpatient (CLI) | payer MEDICARE ==
--- NOTE | 2021-06-27 13:05 | REP ---
INDICATION: PAIN. COMPARISON: None. TECHNIQUE: Five views of the left ankle are provided FINDINGS: The ankle mortise is intact. There is mild medial malleolar spurring. Medial soft tissue swelling is also noted. Vascular calcification is seen going across the ankle anteriorly in the dorsalis pedis. There is a plantar calcaneal spur. IMPRESSION: Anterior and medial soft tissue swelling. Mild medial malleolar ankle spurring. Heel spur. No fracture seen. <Electronically signed by Darion Leija > 06/27/21 [id number]
== END ==
LOC: M WUC 10:37
PROVIDERS: ATTEND Nurse Practitioner Family
DX: M25.572 Pain in left ankle and joints of left foot (principal)

== ENCOUNTER 2021-06-29 12:25 | Emergency (ER) | payer MEDICARE ==
[~2021-06-29] VITALS: Ht 157.5 cm; Wt 73.0 kg
--- NOTE | 2021-06-29 17:34 | REP ---
INDICATION: trauma pain over 1st mt. COMPARISON: None. TECHNIQUE: AP bilateral oblique and lateral views of the left foot were obtained. 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 There are a few bone fragments/soft tissue calcifications medial to the 1st MTP joint, and an acute avulsion fracture cannot be excluded. There is soft tissue swelling over the dorsum of the foot at the level of the metatarsophalangeal joints. The remaining joints of the foot are normal. There is a moderate plantar spur. IMPRESSION: 1. 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 2. An acute avulsion fracture can not be excluded. 3. There is soft tissue swelling over the dorsum of the foot. 4. There is a heel spur. <Electronically signed by Ananda Valles > 06/29/21 [id number]
[2021-06-29] MEDS ORDERED: PERC5TAB12 PO (17:54)
[2021-06-29 18:12] VITALS: BP 122/79
== END 2021-06-29 18:13 | disposition home or self-care (01) ==
LOC: M ED 12:25
DX: S92.312A Displaced fracture of first metatarsal bone, left foot, initial encounter for closed fracture (principal); X58.XXXA Exposure to other specified factors, initial encounter; Y92.9 Unspecified place or not applicable; Y93.9 Activity, unspecified; Y99.9 Unspecified external cause status; M77.32 Calcaneal spur, left foot; Z79.899 Other long term (current) drug therapy

== ENCOUNTER 2021-07-11 09:25 | Emergency (ER) | payer MEDICARE ==
[~2021-07-11] VITALS: Ht 157.5 cm; Wt 74.5 kg
[~2021-07-11 09:25] MED LIST changes: +PERC5TAB12 PO
[2021-07-11] MEDS ORDERED: PERCOCET 5MG/325MG TAB PO ONE (12:10)
--- NOTE | 2021-07-11 12:23 | REP ---
INDICATION: foot pain. COMPARISON: 06/29/2021 TECHNIQUE: Routine FINDINGS: Lateral joint destruction with erosions and cortical disruption at the articular surfaces of the 1st metatarsal head and proximal phalanx of the toe. There is slight progression when compared to the study done 06/29/2021. The findings could be related to osteomyelitis or inflammatory the joint disease. There is adjacent soft tissue swelling. No fractures. IMPRESSION: Lateral joint destruction 1st metatarsal-phalangeal joint with adjacent soft tissue swelling suggests osteomyelitis. Joint aspiration would be helpful. <Electronically signed by Karthikeyan Goodman > 07/11/21 [id number]
[2021-07-11 13:04] LABS: BASO % 0.4 % (0.0-1.0); EOS # 0.2 10^3/uL (0.0-0.5); EOS % 2.2 % (0.0-3.0); HEMATOCRIT 44.4 % (42.0-52.0); HEMOGLOBIN 14.2 g/dl (13.5-17.5); LYMPH % 25.3 % (24.0-44.0); MEAN CORPUSCULAR HEMOGLOBIN 29.2 pg (27.0-33.0); MEAN CORPUSCULAR VOLUME 91.4 fl (80.0-96.0); MONO # 0.9 10^3/uL (0.0-0.8); MONO % 10.8 % (2.0-8.0); NEUTROPHILS # 4.8 10^3/uL (1.5-8.5); NEUTROPHILS % 60.9 % (36.0-66.0); PLATELET COUNT, AUTOMATED 329 10^3/uL (150-450); RED BLOOD COUNT 4.86 10^6/uL (4.30-6.10); WHITE BLOOD COUNT 7.8 10^3/uL (4.0-10.0)
[2021-07-11 13:49] LABS: ALBUMIN 3.7 GM/DL (3.2-5.2); ALT/SGPT 29 U/L (12-78); BILIRUBIN,DIRECT < 0.1 MG/DL (0.0-0.2); BILIRUBIN,TOTAL 0.4 MG/DL (0.2-1.0); C REACTIVE PROTEIN QUANTITATIV 4.75 MG/DL (0.00-0.30); TOTAL PROTEIN 7.9 GM/DL (6.4-8.2); URIC ACID 8.2 MG/DL (3.5-7.2)
[2021-07-11] MEDS ORDERED: predniSONE 20 MG TAB PO ONE ×2 (14:40→14:50)
[2021-07-11] MEDS ORDERED: PRED20TA PO (14:45)
[2021-07-11 15:13] VITALS: BP 158/82
--- NOTE | 2021-07-13 13:40 | ED PDOC ---
Post-Departure Follow-Up radiology report faxed to Claudine Felix MD Jul 13, 2021 13:40
== END 2021-07-11 15:15 | disposition home or self-care (01) ==
LOC: M ED 09:25
DX: M10.072 Idiopathic gout, left ankle and foot (principal); I10 Essential (primary) hypertension; E78.5 Hyperlipidemia, unspecified; J44.9 Chronic obstructive pulmonary disease, unspecified; E03.9 Hypothyroidism, unspecified; Z79.899 Other long term (current) drug therapy
CPT/HCPCS: 73630; 80047; 80076; 84550; 85025; 86140; 87040; 99284; J7512

== ENCOUNTER → 2024-02-09 | Outpatient (CLI) | payer MEDICARE ==
[~2024-02-09] MED LIST changes: +ALBU6.7H6 INH; +FINA-48 PO; +PRED20TA PO; -PROS5TAB PO; -PROV108A INH
[2024-02-09 13:12] LABS: HEMATOCRIT 49.6 % (42.0-52.0); HEMOGLOBIN 16.5 g/dl (13.5-17.5); MEAN CORPUSCULAR HGB CONC 33.3 g/dl (32.0-36.5); MEAN CORPUSCULAR VOLUME 90.2 fl (80.0-96.0); PLATELET COUNT, AUTOMATED 296 10^3/uL (150-450)
[2024-02-09 13:13] LABS: APPEARANCE, URINE CLEAR (CLEAR); BACTERIA, URINE AUTO NEGATIVE (NEGATIVE); BILIRUBIN, URINE AUTO NEGATIVE (NEGATIVE); BLOOD, URINE BLOOD NEGATIVE (NEGATIVE); COLOR, URINE YELLOW (YELLOW); GLUCOSE, URINE (UA) AUTO NEGATIVE (NEGATIVE); KETONE, URINE AUTO NEGATIVE (NEGATIVE); LEUKOCYTE ESTERASE, URINE AUTO NEGATIVE (NEGATIVE); NITRITE, URINE AUTO NEGATIVE (NEGATIVE); PROTEIN, URINE AUTO 2+ mg/dL (NEGATIVE); RBC, URINE AUTO 0 /HPF (0-3); SPECIFIC GRAVITY URINE AUTO 1.006 (1.002-1.035); SQUAMOUS EPITHELIAL CELL UR AU 0 /HPF (0-6); UROBILINOGEN, URINE AUTO 0.2 mg/dL (0.0-2.0); WBC, URINE AUTO 0 /HPF (0-3)
[2024-02-09 13:50] LABS: ALBUMIN 3.8 G/DL (3.2-5.2); ALKALINE PHOSPHATASE 57 U/L (46-116); ALT/SGPT 34 U/L (7.0-40); AST/SGOT 22 U/L (<34); BILIRUBIN,TOTAL 0.4 MG/DL (0.3-1.2); BLOOD UREA NITROGEN 24 MG/DL (9-23); CALCIUM LEVEL 8.6 MG/DL (8.3-10.6); CARBON DIOXIDE LEVEL 28 MMOL/L (20-31); CHLORIDE LEVEL 101 MMOL/L (98-107); CHOLESTEROL LEVEL 233 MG/DL (<200); CHOLESTEROL RISK RATIO 6.18 (<5); CREATININE FOR GFR 1.71 MG/DL (0.70-1.30); GLOMERULAR FILTRATION RATE 42.2 (>42); GLUCOSE, FASTING 115 MG/DL (74-106); HDL CHOLESTEROL 37.7 MG/DL (>40); NON-HDL-C 195.3 MG/DL; POTASSIUM SERUM 4.2 MMOL/L (3.5-5.1); PROSTATIC SPECIFIC AG MONITOR 1.34 NG/ML (< 4.00); SODIUM LEVEL 136 MMOL/L (136-145); THYROID STIMULATING HORMONE 2.787 uIU/ML (0.55-4.78); TOTAL PROTEIN 6.4 G/DL (5.7-8.2); TRIGLYCERIDES LEVEL 571 MG/DL (<150)
[2024-02-10 10:55] LABS: WHITE BLOOD COUNT 7.8 10^3/uL (4.0-10.0)
== END ==
LOC: M LAB 12:15
PROVIDERS: ATTEND Physician Assistant
DX: E78.5 Hyperlipidemia, unspecified (principal); R97.20 Elevated prostate specific antigen [PSA]

== ENCOUNTER → 2024-04-07 | Outpatient (CLI) | payer MEDICARE | LOC: M RAD 09:45 | PROVIDERS: ATTEND Physician Assistant | DX: M54.50 Low back pain, unspecified (principal) ==

== ENCOUNTER → 2024-04-27 | Outpatient (CLI) | payer MEDICARE | LOC: M PAIN 08:00 | PROVIDERS: ATTEND Nurse Practitioner Family | DX: M51.16 Intervertebral disc disorders with radiculopathy, lumbar region (principal); G89.29 Other chronic pain; E03.9 Hypothyroidism, unspecified; M10.9 Gout, unspecified; N40.1 Benign prostatic hyperplasia with lower urinary tract symptoms; R33.9 Retention of urine, unspecified; Z79.891 Long term (current) use of opiate analgesic; Z79.890 Hormone replacement therapy; Z79.899 Other long term (current) drug therapy ==

== ENCOUNTER → 2024-05-13 | Outpatient (CLI) | payer MEDICARE | LOC: M PLARAD 09:37 | PROVIDERS: ATTEND Nurse Practitioner Family | DX: M51.16 Intervertebral disc disorders with radiculopathy, lumbar region (principal) ==

== ENCOUNTER → 2024-05-14 | Outpatient (CLI) | payer MEDICARE | LOC: M WUC 09:43 | PROVIDERS: ATTEND Physician Assistant | DX: M26.602 Left temporomandibular joint disorder, unspecified (principal) ==

== ENCOUNTER → 2024-05-20 | Outpatient (CLI) | payer MEDICARE | LOC: M PAIN 14:30 | PROVIDERS: ATTEND Nurse Practitioner Family | DX: M51.16 Intervertebral disc disorders with radiculopathy, lumbar region (principal); Z79.899 Other long term (current) drug therapy; Z79.890 Hormone replacement therapy; I10 Essential (primary) hypertension; E03.9 Hypothyroidism, unspecified ==

== ENCOUNTER → 2024-08-03 | Outpatient (CLI) | payer MEDICARE ==
[~2024-08-03] MED LIST changes: +ISOVUE-M 300 61% 15ML VIAL As Ordered ONE; +LIDOCAINE 1% SDV 30ML VIAL As Ordered ONE; +dexAMETHasone 10MG/1ML VIAL PRES.FREE As Ordered ONE; +diazePAM 5MG TABLET As Ordered ONE; +oxyCODONE 5MG TAB As Ordered ONE
== END ==
LOC: M PAIN 09:15
PROVIDERS: ATTEND Anesthesiology
DX: M51.16 Intervertebral disc disorders with radiculopathy, lumbar region (principal); G89.29 Other chronic pain; E03.9 Hypothyroidism, unspecified; M10.9 Gout, unspecified; N40.1 Benign prostatic hyperplasia with lower urinary tract symptoms; R33.9 Retention of urine, unspecified; Z79.890 Hormone replacement therapy; Z79.891 Long term (current) use of opiate analgesic; Z79.899 Other long term (current) drug therapy
CPT/HCPCS: 62323; J1100; Q9967

== ENCOUNTER → 2024-09-02 | Outpatient (CLI) | payer MEDICARE ==
[~2024-09-02] MED LIST changes: -ISOVUE-M 300 61% 15ML VIAL As Ordered ONE; -LIDOCAINE 1% SDV 30ML VIAL As Ordered ONE; -dexAMETHasone 10MG/1ML VIAL PRES.FREE As Ordered ONE; -diazePAM 5MG TABLET As Ordered ONE; -oxyCODONE 5MG TAB As Ordered ONE
== END ==
LOC: M PAIN 09:15
PROVIDERS: ATTEND Nurse Practitioner Family
DX: M51.16 Intervertebral disc disorders with radiculopathy, lumbar region (principal); G89.29 Other chronic pain; E03.9 Hypothyroidism, unspecified; M10.9 Gout, unspecified; N40.1 Benign prostatic hyperplasia with lower urinary tract symptoms; R33.9 Retention of urine, unspecified; Z79.890 Hormone replacement therapy; Z79.899 Other long term (current) drug therapy; Z79.891 Long term (current) use of opiate analgesic

== ENCOUNTER → 2024-10-21 | Outpatient (CLI) | payer MEDICARE | LOC: M PAIN 09:15 | PROVIDERS: ATTEND Nurse Practitioner Family | DX: M51.16 Intervertebral disc disorders with radiculopathy, lumbar region (principal); G89.29 Other chronic pain; E03.9 Hypothyroidism, unspecified; M10.9 Gout, unspecified; N40.1 Benign prostatic hyperplasia with lower urinary tract symptoms; R33.9 Retention of urine, unspecified; Z79.890 Hormone replacement therapy; Z79.891 Long term (current) use of opiate analgesic; Z79.899 Other long term (current) drug therapy ==

== ENCOUNTER → 2024-11-02 | Outpatient (CLI) | payer MEDICARE | LOC: M PAIN 08:00 | PROVIDERS: ATTEND Nurse Practitioner Family | DX: M51.16 Intervertebral disc disorders with radiculopathy, lumbar region (principal); G89.29 Other chronic pain; E03.9 Hypothyroidism, unspecified; M10.9 Gout, unspecified; N40.1 Benign prostatic hyperplasia with lower urinary tract symptoms; R33.9 Retention of urine, unspecified; Z79.891 Long term (current) use of opiate analgesic; Z79.890 Hormone replacement therapy; Z79.899 Other long term (current) drug therapy ==

== ENCOUNTER → 2024-12-17 | Outpatient (CLI) | payer MEDICARE | LOC: M PAIN 09:15 | PROVIDERS: ATTEND Nurse Practitioner Family | DX: M51.16 Intervertebral disc disorders with radiculopathy, lumbar region (principal); G89.29 Other chronic pain; E03.9 Hypothyroidism, unspecified; M10.9 Gout, unspecified; Z79.891 Long term (current) use of opiate analgesic; Z79.890 Hormone replacement therapy; Z79.899 Other long term (current) drug therapy ==

== ENCOUNTER → 2025-02-23 | Outpatient (CLI) | payer MEDICARE ==
[2025-02-23 13:52] LABS: APPEARANCE, URINE CLEAR (CLEAR); BACTERIA, URINE AUTO NEGATIVE (NEGATIVE); BILIRUBIN, URINE AUTO NEGATIVE (NEGATIVE); BLOOD, URINE BLOOD NEGATIVE (NEGATIVE); COLOR, URINE YELLOW (YELLOW); GLUCOSE, URINE (UA) AUTO NEGATIVE (NEGATIVE); KETONE, URINE AUTO NEGATIVE (NEGATIVE); LEUKOCYTE ESTERASE, URINE AUTO NEGATIVE (NEGATIVE); NITRITE, URINE AUTO NEGATIVE (NEGATIVE); PROTEIN, URINE AUTO 2+ mg/dL (NEGATIVE); RBC, URINE AUTO 2 /HPF (0-3); SPECIFIC GRAVITY URINE AUTO 1.011 (1.002-1.035); SQUAMOUS EPITHELIAL CELL UR AU 0 /HPF (0-6); UROBILINOGEN, URINE AUTO 0.2 mg/dL (0.0-2.0); WBC, URINE AUTO 0 /HPF (0-3)
[2025-02-23 13:58] LABS: HEMATOCRIT 51.5 % (42.0-52.0); HEMOGLOBIN 16.8 g/dl (13.5-17.5); MEAN CORPUSCULAR HEMOGLOBIN 30.4 pg (27.0-33.0); MEAN CORPUSCULAR HGB CONC 32.6 g/dl (32.0-36.5); MEAN CORPUSCULAR VOLUME 93.1 fl (80.0-96.0); PLATELET COUNT, AUTOMATED 285 10^3/uL (150-450); RED BLOOD COUNT 5.53 10^6/uL (4.30-6.10)
[2025-02-23 14:18] LABS: HEMOGLOBIN A1c 5.2 % (4.0-6.0)
[2025-02-23 14:28] LABS: ALBUMIN 3.7 G/DL (3.2-5.2); BILIRUBIN,TOTAL 0.6 MG/DL (0.3-1.2); CALCIUM LEVEL 8.5 MG/DL (8.3-10.6); CHOLESTEROL RISK RATIO 4.8 (<5); CREATININE FOR GFR 1.87 MG/DL (0.70-1.30); LDL CHOLESTEROL 152.4 MG/DL (<100); POTASSIUM SERUM 4.6 MMOL/L (3.5-5.1); PROSTATIC SPECIFIC AG MONITOR 1.78 NG/ML (< 4.00); TOTAL PROTEIN 6.7 G/DL (5.7-8.2)
[2025-02-23 14:30] LABS: THYROID STIMULATING HORMONE 3.312 uIU/ML (0.55-4.78)
[2025-02-24 07:59] LABS: WHITE BLOOD COUNT 8.5 10^3/uL (4.0-10.0)
== END ==
LOC: M WUC 09:25
PROVIDERS: ATTEND Physician Assistant
DX: I10 Essential (primary) hypertension (principal); E78.5 Hyperlipidemia, unspecified; E03.9 Hypothyroidism, unspecified; Z12.5 Encounter for screening for malignant neoplasm of prostate; R35.1 Nocturia; R73.01 Impaired fasting glucose

== ENCOUNTER → 2025-03-28 | Outpatient (CLI) | payer MEDICARE ==
[~2025-03-28] MED LIST changes: -FLOM0.4C39 PO; +TAMS-18 PO
[2025-03-28 13:15] LABS: HEMATOCRIT 50.1 % (42.0-52.0); HEMOGLOBIN 16.9 g/dl (13.5-17.5); MEAN CORPUSCULAR HGB CONC 33.7 g/dl (32.0-36.5); MEAN CORPUSCULAR VOLUME 91.8 fl (80.0-96.0); PLATELET COUNT, AUTOMATED 304 10^3/uL (150-450); RED BLOOD COUNT 5.46 10^6/uL (4.30-6.10); WHITE BLOOD COUNT 8.3 10^3/uL (4.0-10.0)
[2025-03-28 13:43] LABS: ALBUMIN 3.7 G/DL (3.2-5.2); BILIRUBIN,TOTAL 0.4 MG/DL (0.3-1.2); CREATININE FOR GFR 2.04 MG/DL (0.70-1.30); POTASSIUM SERUM 5.1 MMOL/L (3.5-5.1); TOTAL PROTEIN 6.5 G/DL (5.7-8.2)
== END ==
LOC: M WUC 10:52
PROVIDERS: ATTEND Physician Assistant
DX: N17.9 Acute kidney failure, unspecified (principal)

== ENCOUNTER → 2025-10-19 | Outpatient (CLI) | payer MEDICARE ==
[2025-10-19 12:51] LABS: APPEARANCE, URINE CLEAR (CLEAR); BACTERIA, URINE AUTO NEGATIVE (NEGATIVE); BILIRUBIN, URINE AUTO NEGATIVE (NEGATIVE); BLOOD, URINE BLOOD NEGATIVE (NEGATIVE); GLUCOSE, URINE (UA) AUTO NEGATIVE (NEGATIVE); KETONE, URINE AUTO NEGATIVE (NEGATIVE); LEUKOCYTE ESTERASE, URINE AUTO NEGATIVE (NEGATIVE); NITRITE, URINE AUTO NEGATIVE (NEGATIVE); PROTEIN, URINE AUTO 2+ mg/dL (NEGATIVE); RBC, URINE AUTO 0 /HPF (0-3); SPECIFIC GRAVITY URINE AUTO 1.011 (1.002-1.035); SQUAMOUS EPITHELIAL CELL UR AU 0 /HPF (0-6); UROBILINOGEN, URINE AUTO 0.2 mg/dL (0.0-2.0); WBC, URINE AUTO 0 /HPF (0-3)
[2025-10-19 12:57] LABS: PLATELET COUNT, AUTOMATED 303 10^3/uL (150-450)
[2025-10-19 13:21] LABS: ALT/SGPT 30.0 U/L (7.0-40); AST/SGOT 24.0 U/L (<34); CALCIUM LEVEL 8.8 MG/DL (8.3-10.6); CARBON DIOXIDE LEVEL 29.0 MMOL/L (20-31); CHLORIDE LEVEL 99.0 MMOL/L (98-107); CHOLESTEROL LEVEL 280.0 MG/DL (<200); CHOLESTEROL RISK RATIO 5.89 (<5); CREATININE FOR GFR 1.88 MG/DL (0.70-1.30); GLOMERULAR FILTRATION RATE 37.5 (>42); LDL CHOLESTEROL 188.7 MG/DL (<100); NON-HDL-C 232.5 MG/DL; POTASSIUM SERUM 5.1 MMOL/L (3.5-5.1); PROSTATIC SPECIFIC AG MONITOR 1.34 NG/ML (< 4.00); SODIUM LEVEL 138.0 MMOL/L (136-145); TRIGLYCERIDES LEVEL 219.0 MG/DL (<150)
== END ==
LOC: M WUC 08:42
PROVIDERS: ATTEND Physician Assistant
DX: I10 Essential (primary) hypertension (principal); E78.5 Hyperlipidemia, unspecified; E03.9 Hypothyroidism, unspecified; Z12.5 Encounter for screening for malignant neoplasm of prostate; R35.1 Nocturia